=== PATIENT | female | born 1960 | race African-American/Black ===

== ENCOUNTER 2017-11-28 06:47 | Day surgery (SDC) | payer MEDICAID ==
[2017-11-27 10:17] LABS: HEMATOCRIT 40.2 % (36.0-48.0); HEMOGLOBIN 13.7 g/dL (12-16); MCH 34.8 pg (26.0-34.0); MCHC 34.1 g/dL (31.0-37.0); MEAN PLATELET VOLUME 9.2 fL (7.4-10.4); RBC 3.94 10x6/uL (4.00-5.40); RDW 12.6 % (11.5-14.5); WBC 5.5 10x3/uL (4.8-10.8)
[2017-11-27 10:27] LABS: CALC OSMOLALITY 267 mosm/kg (275-300); CALCIUM 8.5 mg/dL (8.5-10.1); CARBON DIOXIDE 26.1 mmol/L (21.0-32.0); CHLORIDE - SERUM 101 mmol/L (98-107); CREATININE - SERUM 0.7 mg/dL (0.6-1.3); GLUCOSE 98 mg/dL (74-106); POTASSIUM - SERUM 3.7 mmol/L (3.5-5.1); SODIUM 136 mmol/L (136-145); UREA NITROGEN 2 mg/dL (7-18); eGFR NON AFRICAN AMERICAN > 90 mL/min (90-120)
[~2017-11-28] VITALS: Ht 320 cm; Wt 92.5 kg
[~2017-11-28 06:47] MED LIST: GLUCOPHAGE500 MG PO; KLOR-CON 1010 MEQ PO; LIPITOR40 MG PO; NEURONTIN 300300 MG; OMEPRAZOLE20 M1 PO; XALATAN 0.0052.5 ML EACH EYE
[2017-11-28] MEDS ORDERED: PRINIVIL20 MG PO (07:02)
[2017-11-28] MEDS ORDERED: NORVASC10 MG PO (07:04)
[2017-11-28 07:07] VITALS: BP 170/109; Ht 320 cm; Wt 92.5 kg
[2017-11-28] MEDS ORDERED: MEPERIDINE HCL50 MG PO (09:33)
== END 2017-11-28 13:55 | disposition home or self-care (01) ==
LOC: D.OPS 06:47 → D.PAN 08:30 → D.OPS 08:30
PROVIDERS: Anesthesiology
DX: K80.20 Calculus of gallbladder without cholecystitis without obstruction (principal); Z01.812 Encounter for preprocedural laboratory examination

== ENCOUNTER 2017-12-02 17:03 | Emergency (ER) | payer MEDICAID ==
[~2017-12-02 17:03] MED LIST changes: +MEPERIDINE HCL50 MG PO; +NORVASC10 MG PO; +PRINIVIL20 MG PO
== END 2017-12-02 19:44 | disposition home or self-care (01) ==
LOC: D.ER 17:03
DX: L03.311 Cellulitis of abdominal wall (principal); K21.9 Gastro-esophageal reflux disease without esophagitis; E11.9 Type 2 diabetes mellitus without complications; I10 Essential (primary) hypertension

== ENCOUNTER → 2018-04-12 22:36 | Outpatient (CLI) | payer MEDICAID | END | disposition home or self-care (01) | LOC: D.MAMMO 14:45 | DX: Z12.31 Encounter for screening mammogram for malignant neoplasm of breast (principal) ==

== ENCOUNTER 2018-06-10 08:00 | Outpatient (CLI) | payer MEDICAID | END 2018-06-10 09:00 | disposition home or self-care (01) | LOC: D.MAMMO 08:00 | DX: R92.8 Other abnormal and inconclusive findings on diagnostic imaging of breast (principal) ==

== ENCOUNTER → 2018-07-03 10:28 | Outpatient (CLI) | payer MEDICAID | END | disposition home or self-care (01) | LOC: D.US 06-25 11:00 | DX: R92.8 Other abnormal and inconclusive findings on diagnostic imaging of breast (principal) ==

== ENCOUNTER → 2018-08-23 08:27 | Outpatient (CLI) | payer MEDICAID | END | disposition home or self-care (01) | LOC: D.CT 08-09 10:30 | DX: C50.212 Malignant neoplasm of upper-inner quadrant of left female breast (principal) ==

== ENCOUNTER 2018-09-16 05:20 | Day surgery (SDC) | payer MEDICAID ==
[2018-09-13 09:42] LABS: BASOPHILS 0.3 % (0-2); EOSINOPHILS 1.8 % (0-7); HEMATOCRIT 35.2 % (36.0-48.0); HEMOGLOBIN 12.5 g/dL (12-16); IMMATURE GRANULOCYTES 0.1 % (0-5); LYMPHOCYTES 22.6 % (15-50); MCHC 35.5 g/dL (31.0-37.0); MCV 95.7 fL (80.0-100.0); MEAN PLATELET VOLUME 8.6 fL (7.4-10.4); MONOCYTES 9.6 % (2-11); NEUTROPHILS 65.6 % (40-80); RBC 3.68 10x6/uL (4.00-5.40); RDW 12.4 % (11.5-14.5); WBC 7.7 10x3/uL (4.8-10.8)
[2018-09-13 09:49] LABS: PLATELET COUNT 197 10x3/uL (130-400)
[2018-09-13 09:53] LABS: CALC OSMOLALITY 251 mosm/kg (275-300); CALCIUM 8.8 mg/dL (8.5-10.1); CARBON DIOXIDE 30.2 mmol/L (21.0-32.0); CHLORIDE - SERUM 88 mmol/L (98-107); CREATININE - SERUM 0.6 mg/dL (0.6-1.3); GLUCOSE 133 mg/dL (74-106); POTASSIUM - SERUM 4.1 mmol/L (3.5-5.1); SODIUM 126 mmol/L (136-145); UREA NITROGEN 3 mg/dL (7-18); eGFR NON AFRICAN AMERICAN > 90 mL/min (90-120)
[2018-09-13 13:01] LABS: APTT 37.2 SECONDS (22.8-39.4)
[2018-09-13 13:16] LABS: INR 1.46 (0.85-1.17); PROTIME 17.2 SECONDS (11.6-15.0)
[~2018-09-16] VITALS: Ht 167.6 cm; Wt 104.8 kg
[2018-09-16] MEDS ORDERED: FEMARA2.5 MG PO (06:18)
[2018-09-16] MEDS ORDERED: FUROSEMIDE40 MG (06:19)
[2018-09-16] MEDS ORDERED: FLAGYL500 MG PO (06:20)
[2018-09-16 06:29] VITALS: BP 129/91; Ht 167.6 cm; Wt 104.8 kg
[2018-09-16] MEDS ORDERED: OXYCODONE HCL5 M1 PO (15:52)
--- NOTE | 2018-09-17 12:32 | OP ---
PATIENT NAME: AURELIANO NELSON MEDICAL RECORD: [id number] :62 LOCATION:D.FORMERLY [facility] [place] ADMISSION DATE: SURGEON: BROOK CHERY MD DATE OF OPERATION: 09/16/2018 SURGEON: Brook Chery MD (JJ) DISINTEGRATOR: Alesia Pritchett APRN PREOPERATIVE DIAGNOSIS: Left breast invasive breast cancer. POSTOPERATIVE DIAGNOSIS: Left breast invasive breast cancer. PROCEDURES PERFORMED: Left breast lumpectomy and sentinel lymph node biopsy with preoperative needle localization and lymphoscintigraphy. ANESTHESIA: General. COMPLICATIONS: None. SPECIMENS: 1. Left breast lumpectomy. 2. Left axillary sentinel lymph node biopsy times 2. Case was clean. OPERATIVE COURSE: After consent was obtained, the patient was taken to the operating room and placed in the supine position on the operating table. Next, general anesthesia was given via endotracheal intubation. Next, time-out was taken to confirm the correct patient and procedure. The left breast and axilla were prepped and draped in typical sterile fashion. Time-out was taken to confirm the correct patient and procedure. Methylene blue was injected in the circumareolar fashion along the left breast. The needle was located in the upper outer quadrant. Local anesthetic was administered in the proposed skin excision site. An elliptical incision was made around the wire with #15 blade scalpel dissection and continued with electrocautery. The wire and skin were grasped with an Allis clamp. Dissection was then continued to the breast tissue using sharp scissor dissection. The wire was followed and the breast tissue specimen was circumferentially dissected and sent for mammographic confirmation. The wire and clip were confirmed on mammographic x-ray. At this time, the wound was copiously irrigated and suctioned. Careful attention was paid to hemostasis, which was obtained with electrocautery. The operative field was marked with clips. Subcutaneous tissue was reapproximated using 3-0 Vicryl in 2 layers, deep layer and superficial layer. Skin was closed with 4-0 Stratafix, Mastisol, and Steri-Strips. Local anesthetic was injected in the left axilla. A skin incision was made with a #15 blade scalpel. Dissection was continued with sharp scissor dissection. The 2 blue lymph nodes were identified. They registered greater than 1000 on the [place] counter. They were circumferentially dissected being lymphatics. During this circumferential dissection, clips were placed circumferentially around the lymph node during the dissection of both lymph nodes. Both lymph nodes were sent for permanent pathology. The axilla was then copiously irrigated and suctioned. Careful attention was paid to hemostasis, which was obtained with electrocautery. The wound was copiously irrigated. The axilla was closed deep with 3-0 Vicryl suture for the deep subcutaneous layer and the superficial subcutaneous layer. The skin was closed OPERATIVE REPORT [id number] AURELIANO NELSON with 4-0 Monocryl, Mastisol, and Steri-Strips. At the end of the case, all needle and instrument counts were correct. No complications occurred. The patient was extubated and transferred to the PACU in stable condition. TRANSINT:[id number] Voice Confirmation ID: [id number] DOCUMENT ID: [id number] BROOK CHERY MD at 1232 CC: [id number] DICTATION DATE: 09/16/18 1606 [facility] EDUCATOR: 09/16/18 1907 [facility] 09/16/18 [facility] [address] [place] [address]
== END 2018-09-16 19:25 | disposition home or self-care (01) ==
LOC: D.OPS 05:20 → D.PAN 08:00 → D.NM 08:00 → D.OPS 19:25
PROVIDERS: Anesthesiology
DX: C50.912 Malignant neoplasm of unspecified site of left female breast (principal)

== ENCOUNTER 2018-09-22 20:31 | Emergency (ER) | payer MEDICAID ==
[~2018-09-22] VITALS: Ht 167.6 cm; Wt 106.8 kg
[~2018-09-22 20:31] MED LIST changes: +FEMARA2.5 MG PO; +FLAGYL500 MG PO; +FUROSEMIDE40 MG; +OXYCODONE HCL5 M1 PO
[2018-09-22 20:56] VITALS: Ht 167.6 cm; Wt 106.8 kg
[2018-09-22 22:25] LABS: BASOPHILS 0.2 % (0-2); EOSINOPHILS 3.8 % (0-7); HEMATOCRIT 28.3 % (36.0-48.0); IMMATURE GRANULOCYTES 0.5 % (0-5); LYMPHOCYTES 22.5 % (15-50); MCH 34.6 pg (26.0-34.0); MCHC 35.3 g/dL (31.0-37.0); MCV 97.9 fL (80.0-100.0); MEAN PLATELET VOLUME 8.3 fL (7.4-10.4); MONOCYTES 8.9 % (2-11); NEUTROPHILS 64.1 % (40-80); PLATELET COUNT 212 10x3/uL (130-400); RBC 2.89 10x6/uL (4.00-5.40); RDW 13.1 % (11.5-14.5); WBC 10.2 10x3/uL (4.8-10.8)
[2018-09-22 22:43] LABS: ALBUMIN 2.8 g/dL (3.4-5.0); ALKALINE PHOSPHATASE 129 U/L (46-116); ALT (SGPT) 32 U/L (10-68); BILIRUBIN - TOTAL 0.61 mg/dL (0.2-1.3); CALC OSMOLALITY 258 mosm/kg (275-300); CALCIUM 8.2 mg/dL (8.5-10.1); CARBON DIOXIDE 29.7 mmol/L (21.0-32.0); CHLORIDE - SERUM 94 mmol/L (98-107); CREATININE - SERUM 0.7 mg/dL (0.6-1.3); GLUCOSE 125 mg/dL (74-106); POTASSIUM - SERUM 3.8 mmol/L (3.5-5.1); PROTEIN - SERUM 6.9 g/dL (6.4-8.2); SODIUM 130 mmol/L (136-145); UREA NITROGEN 5 mg/dL (7-18); eGFR NON AFRICAN AMERICAN > 90 mL/min (90-120)
[2018-09-23 00:50] VITALS: BP 138/90
== END 2018-09-23 00:50 | disposition home or self-care (01) ==
LOC: D.ER 20:31
PROVIDERS: Family Medicine
DX: R22.32 Localized swelling, mass and lump, left upper limb (principal); S40.022A Contusion of left upper arm, initial encounter; X58.XXXA Exposure to other specified factors, initial encounter; Y93.89 Activity, other specified; Y92.89 Other specified places as the place of occurrence of the external cause; Z98.890 Other specified postprocedural states

== ENCOUNTER 2019-02-12 13:25 | Emergency (ER) | payer MEDICAID ==
[~2019-02-12] VITALS: Ht 167.6 cm; Wt 106.8 kg
[2019-02-12 13:27] VITALS: Ht 167.6 cm; Wt 106.8 kg
[2019-02-12] MEDS ORDERED: PRINIVIL20 MG PO (13:34)
[2019-02-12] MEDS ORDERED: COZAAR100 MG PO (13:36)
[2019-02-12 14:21] LABS: KETONE - SERUM NEGATIVE (NEGATIVE)
[2019-02-12 14:26] LABS: ALBUMIN 3.7 g/dL (3.4-5.0); ALKALINE PHOSPHATASE 89 U/L (46-116); ALT (SGPT) 26 U/L (10-68); BILIRUBIN - TOTAL 1.22 mg/dL (0.2-1.3); CALC OSMOLALITY 269 mosm/kg (275-300); CALCIUM 9.2 mg/dL (8.5-10.1); CARBON DIOXIDE 28.1 mmol/L (21.0-32.0); CHLORIDE - SERUM 95 mmol/L (98-107); CREATININE - SERUM 1.8 mg/dL (0.6-1.3); GLUCOSE 99 mg/dL (74-106); POTASSIUM - SERUM 3.1 mmol/L (3.5-5.1); PROTEIN - SERUM 8.3 g/dL (6.4-8.2); SODIUM 135 mmol/L (136-145); UREA NITROGEN 12 mg/dL (7-18); eGFR NON AFRICAN AMERICAN 31 mL/min (90-120)
[2019-02-12 14:30] LABS: AMYLASE - SERUM 32 U/L (25-115); LIPASE 173 U/L (73-393); TROPONIN-I < 0.017 ng/mL (0.000-0.060)
[2019-02-12 14:31] LABS: BASOPHILS 0.1 % (0-2); EOSINOPHILS 0.6 % (0-7); HEMATOCRIT 32.3 % (36.0-48.0); HEMOGLOBIN 11.2 g/dL (12-16); IMMATURE GRANULOCYTES 0.4 % (0-5); LYMPHOCYTES 7.6 % (15-50); MCH 36.1 pg (26.0-34.0); MCHC 34.7 g/dL (31.0-37.0); MCV 104.2 fL (80.0-100.0); MEAN PLATELET VOLUME 9.2 fL (7.4-10.4); MONOCYTES 6.6 % (2-11); NEUTROPHILS 84.7 % (40-80); RDW 14.3 % (11.5-14.5); WBC 8.4 10x3/uL (4.8-10.8)
[2019-02-12 14:33] LABS: PLATELET COUNT 163 10x3/uL (130-400)
[2019-02-12 16:46] LABS: APPEARANCE CLEAR (CLEAR); COLOR YELLOW (YELLOW); SPECIFIC GRAVITY 1.015 (1.005-1.020)
[2019-02-12 16:47] LABS: BILIRUBIN NEGATIVE (NEGATIVE); GLUCOSE NEGATIVE (NEGATIVE); KETONE NEGATIVE (NEGATIVE); NITRITE NEGATIVE (NEGATIVE); PROTEIN NEGATIVE (NEGATIVE); UROBILINOGEN NORMAL (NORMAL)
[2019-02-12] MEDS ORDERED: PHENERGAN25 M1 PO (17:17)
[2019-02-12 17:32] VITALS: BP 117/80
[2019-02-13] MEDS ORDERED: ONDANSETRON8 MG/TAB PO (16:21)
== END 2019-02-12 17:28 | disposition home or self-care (01) ==
LOC: D.ER 13:25
PROVIDERS: Family Medicine
DX: A08.4 Viral intestinal infection, unspecified (principal)

== ENCOUNTER 2019-02-13 13:50 | Emergency (ER) | payer MEDICAID ==
[~2019-02-13] VITALS: Ht 167.6 cm; Wt 106.8 kg
[~2019-02-13 13:50] MED LIST changes: +COZAAR100 MG PO; +PHENERGAN25 M1 PO
[2019-02-13 14:00] VITALS: Ht 167.6 cm; Wt 106.8 kg
[2019-02-13 14:37] LABS: BASOPHILS 0.1 % (0-2); EOSINOPHILS 1.3 % (0-7); HEMATOCRIT 30.3 % (36.0-48.0); HEMOGLOBIN 10.4 g/dL (12-16); IMMATURE GRANULOCYTES 0.1 % (0-5); LYMPHOCYTES 12.1 % (15-50); MCH 35.5 pg (26.0-34.0); MCHC 34.3 g/dL (31.0-37.0); MCV 103.4 fL (80.0-100.0); MEAN PLATELET VOLUME 9.2 fL (7.4-10.4); MONOCYTES 9.9 % (2-11); NEUTROPHILS 76.5 % (40-80); PLATELET COUNT 135 10x3/uL (130-400); RBC 2.93 10x6/uL (4.00-5.40); RDW 14.1 % (11.5-14.5); WBC 6.7 10x3/uL (4.8-10.8)
[2019-02-13 14:57] LABS: ALBUMIN 3.4 g/dL (3.4-5.0); ALKALINE PHOSPHATASE 74 U/L (46-116); ALT (SGPT) 26 U/L (10-68); BILIRUBIN - TOTAL 0.86 mg/dL (0.2-1.3); CALC OSMOLALITY 266 mosm/kg (275-300); CALCIUM 8.4 mg/dL (8.5-10.1); CARBON DIOXIDE 27.1 mmol/L (21.0-32.0); CHLORIDE - SERUM 95 mmol/L (98-107); CREATININE - SERUM 2.2 mg/dL (0.6-1.3); GLUCOSE 122 mg/dL (74-106); PROTEIN - SERUM 7.6 g/dL (6.4-8.2); SODIUM 132 mmol/L (136-145); UREA NITROGEN 14 mg/dL (7-18); eGFR NON AFRICAN AMERICAN 24 mL/min (90-120)
[2019-02-13 15:00] LABS: APTT 27.8 SECONDS (22.8-39.4); INR 1.49 (0.85-1.17); PROTIME 17.4 SECONDS (11.6-15.0)
[2019-02-13 15:15] LABS: CKMB 0.6 U/L (0.0-3.6); CREATINE KINASE 72 UL (21-215); THYROID STIMULATING HORMONE 2.09 uIU/mL (0.36-3.74)
[2019-02-13 15:16] LABS: TROPONIN-I < 0.017 ng/mL (0.000-0.060)
[2019-02-13 15:25] LABS: MAGNESIUM - SERUM 0.9 mg/dL (1.8-2.4)
[2019-02-13 16:04] LABS: APPEARANCE CLEAR (CLEAR); BILIRUBIN NEGATIVE (NEGATIVE); COLOR DK YELLOW (YELLOW); GLUCOSE NEGATIVE (NEGATIVE); KETONE NEGATIVE (NEGATIVE); NITRITE NEGATIVE (NEGATIVE); PROTEIN TRACE mg/dL (NEGATIVE); UROBILINOGEN NORMAL (NORMAL)
[2019-02-13 16:07] LABS: BACTERIA FEW /hpf (NONE SEEN); GRANULAR CAST 0-5 /lpf (NONE SEEN); RED CELLS - URINE 0-5 /hpf (0-5); WHITE CELLS - URINE 0-5 /hpf (0-5)
[2019-02-13 16:09] LABS: UDS - AMPHET NEGATIVE QUAL (NEGATIVE); UDS - BARB NEGATIVE QUAL (NEGATIVE); UDS - BENZO NEGATIVE QUAL (NEGATIVE); UDS - COCAINE NEGATIVE QUAL (NEGATIVE); UDS - OPIATE POSITIVE QUAL (NEGATIVE); UDS - PCP NEGATIVE QUAL (NEGATIVE); UDS - THC NEGATIVE QUAL (NEGATIVE)
[2019-02-13] MEDS ORDERED: ONDANSETRON8 MG/TAB PO (16:21)
--- NOTE | 2019-02-13 17:20 | NUR ---
DR GUERRIER NOTIFIED AND REVIEWED PATIENT'S BEHAVIOR AND ASSESSMENT RESULTS. PT IS A LOW RISK PER DR GUERRIER. DR GUERRIER STATED TO GIVE REWOURCES TO PATIENT AT TIME OF DISCHARGE. NO FURTHER ORDERS AT THIS TIME. RESOURCES REVIEWED WITH PT AND SHE VERBALIZED UNDERSTANDING.
[2019-02-13 18:07] VITALS: BP 119/84
== END 2019-02-13 17:41 | disposition home or self-care (01) ==
LOC: D.ER 13:50
PROVIDERS: Family Medicine
DX: R42 Dizziness and giddiness (principal); E11.9 Type 2 diabetes mellitus without complications; I10 Essential (primary) hypertension; E87.6 Hypokalemia; E87.1 Hypo-osmolality and hyponatremia; R11.2 Nausea with vomiting, unspecified; N28.9 Disorder of kidney and ureter, unspecified

== ENCOUNTER → 2019-05-12 11:04 | Outpatient (CLI) | payer MEDICAID ==
[2019-02-13 14:00] VITALS: BMI 38.0
[~2019-05-12 11:04] MED LIST changes: +ONDANSETRON8 MG/TAB PO; +ULTRAM50 MG PO
== END | disposition home or self-care (01) ==
LOC: D.MAMMO 10:00 → D.US 11:04 → D.MAMMO 06-11 09:30
PROVIDERS: ATTEND Internal Medicine Medical Oncology
DX: C50.212 Malignant neoplasm of upper-inner quadrant of left female breast (principal)

== ENCOUNTER 2019-06-04 09:24 | Inpatient (IN) | payer MEDICAID ==
[~2019-06-04] VITALS: Ht 167.6 cm; Wt 107.5 kg
[~2019-06-04 09:24] MED LIST changes: -ULTRAM50 MG PO
[2019-06-04 10:21] LABS: APTT 34.6 SECONDS (22.8-39.4); INR 1.36 (0.85-1.17); PROTIME 16.2 SECONDS (11.6-15.0)
[2019-06-04 10:27] LABS: CALC OSMOLALITY 247 mosm/kg (275-300); CALCIUM 8.6 mg/dL (8.5-10.1); CARBON DIOXIDE 27.1 mmol/L (21.0-32.0); CHLORIDE - SERUM 86 mmol/L (98-107); GLUCOSE 127 mg/dL (74-106); POTASSIUM - SERUM 4.3 mmol/L (3.5-5.1); SODIUM 123 mmol/L (136-145); UREA NITROGEN 7 mg/dL (7-18); eGFR NON AFRICAN AMERICAN 61 mL/min (90-120)
[2019-06-04 10:44] LABS: ALBUMIN 2.9 g/dL (3.4-5.0); ALKALINE PHOSPHATASE 122 U/L (46-116); ALT (SGPT) 24 U/L (10-68); AMYLASE - SERUM 51 U/L (25-115); BILIRUBIN - TOTAL 0.52 mg/dL (0.2-1.3); CKMB 1.2 U/L (0.0-3.6); CREATINE KINASE 102 UL (21-215); LIPASE 226 U/L (73-393); MAGNESIUM - SERUM 1.1 mg/dL (1.8-2.4); PROTEIN - SERUM 7.1 g/dL (6.4-8.2); TROPONIN-I < 0.017 ng/mL (0.000-0.060)
[2019-06-04 10:53] LABS: BASOPHILS 0.1 % (0-2); EOSINOPHILS 0.9 % (0-7); HEMATOCRIT 31.1 % (36.0-48.0); IMMATURE GRANULOCYTES 0.3 % (0-5); LYMPHOCYTES 6.8 % (15-50); MCH 35.9 pg (26.0-34.0); MCHC 35.4 g/dL (31.0-37.0); MCV 101.6 fL (80.0-100.0); MEAN PLATELET VOLUME 8.9 fL (7.4-10.4); MONOCYTES 6.8 % (2-11); NEUTROPHILS 85.1 % (40-80); RBC 3.06 10x6/uL (4.00-5.40); RDW 12.8 % (11.5-14.5)
[2019-06-04 10:57] LABS: PLATELET COUNT 212 10x3/uL (130-400)
--- NOTE | 2019-06-04 11:46 | NUR ---
REPORT TO PAULINA GARNER. pATIENT TO GO TO ROOM 6309
--- NOTE | 2019-06-04 12:07 | NUR ---
RECEIVED FROM ER VIA W/C. SHE IS ABLE TO TRANSFER SELF TO THE BED. RESP EVEN WITHOUT LABOR. ALERT AND ORIENT X4. COOPERATIVE. IV BANANA BAG INFUSING IN RIGHT A/C SITE IS CLEAR. ORIENT TO ROOM AND USE OF CL. BED IN LOWEST POSITION AND LOCKED. CAREPLAN INITIATED. ABLE TO MOVE ALL EXT. FOLLOWS COMMANDS. TELEMENTRY ON. DENIES ANY CURRENT NEEDS. HER LEFT BREAST IS SWOLLEN AND EDEMATOUS, PAINFUL TO TOUCH. SHE STATES IT HAS BEEN THAT WAY SINCE LUMPECTOMY. FLAQUITO GOETZ IS HERE AND AWARE. IS AT BEDSIDE
[2019-06-04 15:44] VITALS: BP 137/81; BMI 24.4
[2019-06-04] MEDS ORDERED: ULTRAM50 MG PO (19:03)
--- NOTE | 2019-06-04 19:30 | NUR ---
PT SITTING UP IN BED ALERT AND ORIENTED X4. FAMILY AT BEDSIDE. PT DENIES ANY PAIN OR NEEDS AT THIS TIME. BED LOW CALL LIGHT WITHIN REACH. WILL CONTINUE TO MONITOR.
[2019-06-04 20:00] VITALS: BP 150/91
[2019-06-05] VITALS: BP 138/69
[2019-06-05 04:00] VITALS: BP 112/77
[2019-06-05 04:25] LABS: BASOPHILS 0.1 % (0-2); EOSINOPHILS 0.4 % (0-7); HEMATOCRIT 29.9 % (36.0-48.0); HEMOGLOBIN 10.3 g/dL (12-16); IMMATURE GRANULOCYTES 0.3 % (0-5); LYMPHOCYTES 7.5 % (15-50); MCH 35.5 pg (26.0-34.0); MCHC 34.4 g/dL (31.0-37.0); MCV 103.1 fL (80.0-100.0); MEAN PLATELET VOLUME 8.6 fL (7.4-10.4); MONOCYTES 8.4 % (2-11); NEUTROPHILS 83.3 % (40-80); PLATELET COUNT 197 10x3/uL (130-400); RDW 12.7 % (11.5-14.5)
[2019-06-05 04:45] LABS: ALBUMIN 2.8 g/dL (3.4-5.0); ANION GAP 8.7 mmol/L (8-16); BILIRUBIN - TOTAL 0.78 mg/dL (0.2-1.3); CALCIUM 8.4 mg/dL (8.5-10.1); CARBON DIOXIDE 31.1 mmol/L (21.0-32.0); CREATININE - SERUM 1.1 mg/dL (0.6-1.3); POTASSIUM - SERUM 3.8 mmol/L (3.5-5.1); PROTEIN - SERUM 6.8 g/dL (6.4-8.2)
[2019-06-05 05:11] LABS: MAGNESIUM - SERUM 1.4 mg/dL (1.8-2.4)
--- NOTE | 2019-06-05 07:58 | NUR ---
REPORT RECEIVED. WILL CONTINUE WITH POC. PT CURRENTLY LYING HIGH FOWLERS. CALL LIGHT W/I REACH. RR EVEN AND UNLABORED ON RA. NS INFUSING @100ML/HR VIA R.FOR PIV. NO S/S OF DISTRESS NOTED. PT DENIES ANY NEEDS AT THIS TIME. WILL CTM.
[2019-06-05 09:18] VITALS: BP 119/74
[2019-06-05 11:02] LABS: % SATURATION 41 % (15-55); IRON 94 ug/dl (35-150); TOTAL IRON BIND CAPACITY 229 ug/dl (260-445); UNSAT IRON BIND CAPACITY 135 ug/dl (150-375)
[2019-06-05 11:58] VITALS: Ht 167.6 cm; Wt 107.5 kg
--- NOTE | 2019-06-05 13:47 | NUR ---
PT DISCHARGED HOME VIA WHEELCHAIR WITH FAMILY. PIV REMOVED WITH CATHETER TIP FULLY INTACT. TELEMETRY REMOVED AND RETURNED. PT SIGNED PROPER DISCHARGE INSTRUCTIONS AND REMOVED ALL VALUABLES FROM THE ROOM.
--- NOTE | 2019-06-05 14:32 | MORECARE ---
CASE MANAGEMENT DISCHARGE SUMMARY PATIENT: AURELIANO NELSON UNIT: [id number] ADM DATE: 06/04/19 AGE: 58 : 62 SEX: F ROOM/BED: D.2108 AUTHOR: MARGARETH HSIEH PHYSICIAN: REFERRING PHYSICIAN: BUBBA RIVERA MD DATE OF SERVICE: 06/05/19 Discharge Plan Patient Name: AURELIANO NELSON Facility: [facility]:[place] : 1960 Planned Disposition: Home Anticipated Discharge Date: 06/05/19 Discharge Date: 06/05/2019 Expected LOS: 1 Initial Reviewer: [email or web address] Initial Review Date: 06/05/2019 Generated: 06/05/19 3:31 pm Patient Name: AURELIANO NELSON Page [id number] at 1432 All edits/amendments must be made on the electronic document DICTATION DATE: 06/05/19 1431 COMMUNICATIONS COORDINATOR: ADILENE 06/05/19 1431 RPT#: [id number] DC DATE:06/05/19 STATUS: DIS IN [facility] [address] [place] [address] END OF REPORT
--- NOTE | 2019-06-05 14:42 | MORECARE ---
CASE MANAGEMENT DISCHARGE SUMMARY PATIENT: AURELIANO NELSON UNIT: [id number] ADM DATE: 06/04/19 AGE: 58 : 62 SEX: F ROOM/BED: D.5351 AUTHOR: JORI,DOC PHYSICIAN: REFERRING PHYSICIAN: BUBBA RIVERA MD DATE OF SERVICE: 06/05/19 Discharge Plan Patient Name: AURELIANO NELSON Facility: [facility]:[place] : 1960 Planned Disposition: Home Anticipated Discharge Date: 06/05/19 Discharge Date: 06/05/2019 Expected LOS: 1 Initial Reviewer: GERRI Initial Review Date: 06/05/2019 Generated: 06/05/19 3:41 pm Comments DCP- Discharge Planning Updated by [email or web address]: Farshad Cook on 06/05/19 1:[address] Patient Name: AURELIANO NELSON Admission Status: ER Accout number: [id number] Admission Date: 06-04-2019 : 1960 Admission Diagnosis: Attending: NICOLE, Current LOS: 1 Anticipated DC Date: 06-05-2019 Planned Disposition: Home Primary Insurance: MEDICAID [place] Discharge Planning Comments: CM RECEIVED DISCHARGE ORDER INDICATING PT NEEDS Alcoholics Anonymous INFORMATION. CM MET WITH PT IN ROOM TO DISCUSS DISCHARGE PLANNING AND NEEDS. PT REPORTS LIVING AT HOME INDEPENDENTLY WITH HER "OLD MAN" OF OVER 30 YEARS. PT HAS NO MEDICAL EQUIPMENT AND NO OUTSIDE SERVICES ASSISTING IN THE HOME. CM DISCUSSED AVAILABILITY OF HOME HEALTH, REHAB SERVICES AND MEDICAL EQUIPMENT. PT DENIES DISCHARGE NEEDS, REPORTS SHE IS DRIVING SELF HOME AT DISCHARGE TODAY. CM DISCUSSED LOCAL TREATMENT AND ADDICTION SUPPORT RESOURCES AVALABLE IN [place]. CM OFFERED PT LISTING, PT ACCEPTED. PT DENIES NEED OF ASSISTANCE TO QUIT DRINKING. PT STATES SHE HAD BEEN DRINKING "PRETTY MUCH" HER WHOLE LIFE. PT USUALLY DRINKS HALF A PINT OF GIN WITH SPRITE DURING A DAY. PT HAS BEEN DRINKING A LITTLE MORE OF IT LATELY DUE TO FAMILY DEATHS. PT PLANS TO STOP DRINKING HERSELF AND DENIES NEED OF TREATMENT AND SUPPORT RESOURCES. MECHANICAL ENGINEERING TEACHER NURSE NOTIFIED. [place]ting Head Band Sawyer: Farshad Cook DCPIA - Discharge Planning Initial Assessment Updated by [email or web address]: Farshad Cook on 06/05/19 2:35 pm * Is the patient Alert and Oriented? Yes * How many steps to enter\\exit or inside your home? * PCP DR DE LA CRUZ * Pharmacy [facility] * Preadmission Environment Home with Family * ADLs Independent * Equipment None * Other Equipment NO MEDICAL EQUIPMENT PROVIDER PREFERENCE * List name and contact numbers for known caregivers / representatives who currently or will assist patient after discharge: WILMER CERNA, SIGNIFICANT OTHER, * Verbal permission to speak to the caregivers and representatives has been obtained from the patient. N/A * Community resources currently utilized None * Please name any agencies selected above. NONE * Additional services required to return to the preadmission environment? No * Can the patient safely return to the preadmission environment? Yes * Has this patient been hospitalized within the prior 30 days at any hospital? No Last DP export: 06/05/19 1:32 Patient Name: AURELIANO NELSON Page [id number] at 1442 All edits/amendments must be made on the electronic document DICTATION DATE: 06/05/19 1441 SOFTWARE DESIGN ANALYST: ADILENE 06/05/19 1441 RPT#: [id number] DC DATE:06/05/19 STATUS: DIS IN [facility] [address] [place] [address] END OF REPORT
== END 2019-06-05 13:48 | disposition home or self-care (01) | DRG 641 ==
LOC: D.ER 09:24 → D.M2 11:34
PROVIDERS: Family Medicine; ADMIT Family Medicine; ATTEND Family Medicine
DX: E87.1 Hypo-osmolality and hyponatremia (principal); F10.20 Alcohol dependence, uncomplicated; Y90.1 Blood alcohol level of 20-39 mg/100 ml; E11.65 Type 2 diabetes mellitus with hyperglycemia; I10 Essential (primary) hypertension; K21.9 Gastro-esophageal reflux disease without esophagitis; N64.4 Mastodynia; D53.9 Nutritional anemia, unspecified

== ENCOUNTER 2019-07-14 09:52 | Emergency (ER) | payer MEDICAID ==
[~2019-07-14] VITALS: Ht 167.6 cm; Wt 104.3 kg
[~2019-07-14 09:52] MED LIST changes: +ULTRAM50 MG PO
[2019-07-14 09:56] VITALS: Ht 167.6 cm; Wt 104.3 kg
[2019-07-14 11:12] VITALS: BP 136/74
== END 2019-07-14 11:13 | disposition home or self-care (01) ==
LOC: D.ER 09:52
DX: N64.4 Mastodynia (principal); Z85.3 Personal history of malignant neoplasm of breast; E11.9 Type 2 diabetes mellitus without complications; Z79.84 Long term (current) use of oral hypoglycemic drugs; I10 Essential (primary) hypertension

== ENCOUNTER → 2019-09-01 12:36 | Outpatient (CLI) | payer MEDICAID ==
[2019-07-14 09:56] VITALS: BMI 38.2
== END | disposition home or self-care (01) ==
LOC: D.US 12:36
PROVIDERS: ATTEND Surgery
DX: C50.919 Malignant neoplasm of unspecified site of unspecified female breast (principal)

== ENCOUNTER 2019-10-14 13:50 | Inpatient (IN) | payer MEDICAID ==
[~2019-10-14] VITALS: Ht 167.6 cm; Wt 106.8 kg
[2019-10-14] MEDS ORDERED: PHENERGAN25 M1 PO (13:58)
[2019-10-14] MEDS ORDERED: REGLAN5 MG PO (13:59)
[2019-10-14 14:26] LABS: BASOPHILS 0.2 % (0-2); EOSINOPHILS 4.4 % (0-7); HEMATOCRIT 32.4 % (36.0-48.0); HEMOGLOBIN 10.7 g/dL (12-16); IMMATURE GRANULOCYTES 0.1 % (0-5); LYMPHOCYTES 17.2 % (15-50); MCH 28.9 pg (26.0-34.0); MCV 87.6 fL (80.0-100.0); MEAN PLATELET VOLUME 8.8 fL (7.4-10.4); NEUTROPHILS 71.1 % (40-80); RDW 12.8 % (11.5-14.5); WBC 8.8 10x3/uL (4.8-10.8)
[2019-10-14 14:43] LABS: PLATELET COUNT 292 10x3/uL (130-400)
--- NOTE | 2019-10-14 14:55 | NUR ---
URINE SPECIMEN COLLECTED, LABELED AT BS AND SENT TO LAB
[2019-10-14 14:57] VITALS: BP 140/78
[2019-10-14 15:48] LABS: BILIRUBIN NEGATIVE (NEGATIVE); GLUCOSE NEGATIVE (NEGATIVE); KETONE NEGATIVE (NEGATIVE); NITRITE NEGATIVE (NEGATIVE); UROBILINOGEN NORMAL (NORMAL)
[2019-10-14 15:49] LABS: BACTERIA MODERATE /hpf (NEGATIVE); EPITHELIAL CELLS 0-5 /hpf (0-5); RED CELLS - URINE 0-5 /hpf (0-5); WHITE CELLS - URINE 0-5 /hpf (NEGATIVE)
[2019-10-14 15:50] LABS: ANION GAP 12.9 mmol/L (8-16); CALCIUM 9.6 mg/dL (8.5-10.1); CARBON DIOXIDE 25.9 mmol/L (21.0-32.0); CREATININE - SERUM 1.2 mg/dL (0.6-1.3); POTASSIUM - SERUM 3.8 mmol/L (3.5-5.1)
[2019-10-14 15:56] LABS: ALBUMIN 3.2 g/dL (3.4-5.0); BILIRUBIN - TOTAL 0.28 mg/dL (0.2-1.3); PROTEIN - SERUM 7.7 g/dL (6.4-8.2)
--- NOTE | 2019-10-14 16:30 | NUR ---
ROCEPHIN 1 GRAM COMPLETED ON 10/14/19 AT 16:30.
--- NOTE | 2019-10-14 16:41 | NUR ---
REPORT CALLED TO PAULINA GAMING ROOM ISNT READY AT THIS TIME BUT RN STATED SHE CALL WHEN ROOM IS READY.
--- NOTE | 2019-10-14 17:00 | NUR ---
500 MG ZITHROMYCIN COMPLETED ON 10/14/19 AT 17:00
--- NOTE | 2019-10-14 17:00 | NUR ---
TRANSPORTED TO FLOOR , CONDITION STABLE
[2019-10-14] MEDS ORDERED: TEMAZEPAM30 MG PO (17:11)
[2019-10-14 17:22] VITALS: Ht 167.6 cm; Wt 106.8 kg
[2019-10-14 17:25] VITALS: BP 89/48
--- NOTE | 2019-10-14 19:00 | NUR ---
BEDSIDE REPORT RECEIVED AND CARE OF PT ASSUMED. PT LYING IN SUPINE POSITION WITH EYES CLOSED. IV TO LEFT FA SALINE LOCKED. WILL MONITOR FOR NEEDS.
[2019-10-14 21:28] VITALS: BP 119/71
--- NOTE | 2019-10-14 22:21 | NUR ---
HS MEDICATIONS GIVEN. FSBS 162 THIS CHECK REQUIRING COVERAGE WITH 2 UNITS OF INSULIN PER SLIDING SCALE.
[2019-10-15 01:59] VITALS: BP 118/79
[2019-10-15 04:36] LABS: BASOPHILS 0.1 % (0-2); EOSINOPHILS 2.8 % (0-7); HEMATOCRIT 30.3 % (36.0-48.0); IMMATURE GRANULOCYTES 0.1 % (0-5); LYMPHOCYTES 18.4 % (15-50); MCH 28.8 pg (26.0-34.0); MCV 87.3 fL (80.0-100.0); NEUTROPHILS 74.6 % (40-80); PLATELET COUNT 288 10x3/uL (130-400); RBC 3.47 10x6/uL (4.00-5.40); RDW 12.8 % (11.5-14.5)
[2019-10-15 05:01] LABS: ALBUMIN 2.8 g/dL (3.4-5.0); ANION GAP 11.2 mmol/L (8-16); BILIRUBIN - TOTAL 0.28 mg/dL (0.2-1.3); CALCIUM 9.3 mg/dL (8.5-10.1); CARBON DIOXIDE 27.6 mmol/L (21.0-32.0); CHOL - HDL RATIO 3.7 ratio (2.3-4.1); LDL-HDL RATIO 2.2 ratio (1.5-3.5); PHOSPHOROUS 3.9 mg/dL (2.5-4.9); POTASSIUM - SERUM 3.8 mmol/L (3.5-5.1)
[2019-10-15 06:04] VITALS: BP 129/83
[2019-10-15 08:00] VITALS: BP 126/81
--- NOTE | 2019-10-15 08:02 | NUR ---
PT RESTING QUIETLY IN BED, RESP EVEN AND UNLABORED. DENIES PAIN AT THIS TIME. SALINE LOC TO LEFT FOREARM INTACT, EASILY FLUSHED. SITE WITHOUT REDNESS OR EDEMA. DENIES FURTHER NEEDS AT THIS TIME. CL WITHIN REACH. ENCOURAGED TO CALL WITH NEEDS. CONTINUE POC
[2019-10-15] MEDS ORDERED: ZITHROMAX250 MG PO (09:22)
[2019-10-15] MEDS ORDERED: OMNICEF300 MG PO (09:22)
[2019-10-15] MEDS ORDERED: FLORAJEN3 CAPS460 MG PO (09:23)
[2019-10-15] MEDS ORDERED: LIPITOR10 MG PO (09:26)
--- NOTE | 2019-10-15 10:50 | NUR ---
PT DISCHARGE EDUCATION PROVIDED. STRESSED THE IMPORTANCE OF NEWLY PRESCRIBED MEDICATIONS, INCLUDING ANTIBIOTICS. AND CONTINUATION OF HOME MEDICATIONS. PT VOICES UNDERSTANDING AND WITHOUT FURTHER QUESTIONS. SALINE LOC DISCONTINUED FROM LEFT FOREARM, CATH INTACT. PT TAKEN OUT VIA W/C WITH ALL PERSONAL POSSESIONS
== END 2019-10-15 11:24 | disposition home or self-care (01) | DRG 194 ==
LOC: D.ER 13:50 → D.MS 15:30
PROVIDERS: Family Medicine; ADMIT Family Medicine; ATTEND Family Medicine
DX: J18.9 Pneumonia, unspecified organism (principal); E87.1 Hypo-osmolality and hyponatremia; I10 Essential (primary) hypertension; E11.42 Type 2 diabetes mellitus with diabetic polyneuropathy; H40.9 Unspecified glaucoma; K21.9 Gastro-esophageal reflux disease without esophagitis; C50.912 Malignant neoplasm of unspecified site of left female breast

== ENCOUNTER 2019-10-23 12:22 | Emergency (ER) | payer MEDICAID ==
[~2019-10-23] VITALS: Ht 167.6 cm; Wt 102.3 kg
[~2019-10-23 12:22] MED LIST changes: +FLORAJEN3 CAPS460 MG PO; +LIPITOR10 MG PO; +OMNICEF300 MG PO; +REGLAN5 MG PO; +TEMAZEPAM30 MG PO; +ZITHROMAX250 MG PO
[2019-10-23 12:27] VITALS: Ht 167.6 cm; Wt 102.3 kg
[2019-10-23 15:00] LABS: BASOPHILS 0.1 % (0-2); EOSINOPHILS 2.3 % (0-7); HEMATOCRIT 34.1 % (36.0-48.0); IMMATURE GRANULOCYTES 0.3 % (0-5); LYMPHOCYTES 18.2 % (15-50); MCHC 32.3 g/dL (31.0-37.0); MEAN PLATELET VOLUME 8.9 fL (7.4-10.4); MONOCYTES 6.9 % (2-11); NEUTROPHILS 72.2 % (40-80); PLATELET COUNT 311 10x3/uL (130-400); RBC 3.79 10x6/uL (4.00-5.40); RDW 12.8 % (11.5-14.5); WBC 10.6 10x3/uL (4.8-10.8)
[2019-10-23 15:15] LABS: ANION GAP 12.3 mmol/L (8-16); CALCIUM 9.6 mg/dL (8.5-10.1); CARBON DIOXIDE 29.6 mmol/L (21.0-32.0); POTASSIUM - SERUM 3.9 mmol/L (3.5-5.1)
[2019-10-23 15:20] LABS: ALBUMIN 3.1 g/dL (3.4-5.0); BILIRUBIN - TOTAL 0.38 mg/dL (0.2-1.3); PROTEIN - SERUM 7.6 g/dL (6.4-8.2); URIC ACID 7.4 mg/dL (2.6-7.2)
[2019-10-23] MEDS ORDERED: PREDNISONE20 MG PO (16:56)
[2019-10-23 17:25] VITALS: BP 159/86
== END 2019-10-23 17:19 | disposition home or self-care (01) ==
LOC: D.ER 12:22
PROVIDERS: Family Medicine
DX: M25.561 Pain in right knee (principal); M10.9 Gout, unspecified; E11.9 Type 2 diabetes mellitus without complications; Z79.84 Long term (current) use of oral hypoglycemic drugs; I10 Essential (primary) hypertension; K21.9 Gastro-esophageal reflux disease without esophagitis

== ENCOUNTER 2020-01-24 02:42 | Emergency (ER) | payer MEDICAID ==
[~2020-01-24] VITALS: Ht 167.6 cm; Wt 108.6 kg
[~2020-01-24 02:42] MED LIST changes: +PREDNISONE20 MG PO
[2020-01-24 02:46] VITALS: Ht 167.6 cm; Wt 108.6 kg
[2020-01-24] MEDS ORDERED: FUROSEMIDE20 MG PO (02:58)
[2020-01-24 03:14] LABS: BASOPHILS 0.1 % (0-2); EOSINOPHILS 1.1 % (0-7); HEMATOCRIT 36.2 % (36.0-48.0); HEMOGLOBIN 11.8 g/dL (12-16); IMMATURE GRANULOCYTES 0.1 % (0-5); LYMPHOCYTES 15.9 % (15-50); MCH 29.5 pg (26.0-34.0); MCHC 32.6 g/dL (31.0-37.0); MCV 90.5 fL (80.0-100.0); MEAN PLATELET VOLUME 9.2 fL (7.4-10.4); MONOCYTES 8.4 % (2-11); NEUTROPHILS 74.4 % (40-80); PLATELET COUNT 219 10x3/uL (130-400); RDW 14.3 % (11.5-14.5); WBC 7.1 10x3/uL (4.8-10.8)
[2020-01-24 03:18] LABS: CALC OSMOLALITY 269 mosm/kg (275-300); CALCIUM 9.3 mg/dL (8.5-10.1); CARBON DIOXIDE 29.4 mmol/L (21.0-32.0); CHLORIDE - SERUM 98 mmol/L (98-107); GLUCOSE 137 mg/dL (74-106); SODIUM 134 mmol/L (136-145); UREA NITROGEN 13 mg/dL (7-18); eGFR NON AFRICAN AMERICAN 60 mL/min (90-120)
[2020-01-24 03:19] LABS: APTT 35.6 SECONDS (22.8-39.4); INR 1.28 (0.85-1.17); PROTIME 15.9 SECONDS (11.6-15.0)
[2020-01-24 03:20] LABS: D-DIMER-QUANTITATIVE 0.79 ug/mLFEU (0.20-0.54)
[2020-01-24 03:31] LABS: ALBUMIN 3.3 g/dL (3.4-5.0); ALKALINE PHOSPHATASE 167 U/L (30-120); ALT (SGPT) 15 U/L (10-68); BILIRUBIN - TOTAL 0.16 mg/dL (0.2-1.3); PRO BNP 77 pg/mL (0-125); PROTEIN - SERUM 7.6 g/dL (6.4-8.2); TROPONIN-I < 0.017 ng/mL (0.000-0.060)
[2020-01-24] MEDS ORDERED: ROBITUSSIN DM 110 ML PO (04:56)
[2020-01-24] MEDS ORDERED: ZITHROMAX500 MG PO (04:56)
[2020-01-24 05:02] VITALS: BP 145/87
== END 2020-01-24 05:02 | disposition home or self-care (01) ==
LOC: D.ER 02:42
PROVIDERS: Family Medicine
DX: J20.9 Acute bronchitis, unspecified (principal); E11.40 Type 2 diabetes mellitus with diabetic neuropathy, unspecified; I10 Essential (primary) hypertension; K21.9 Gastro-esophageal reflux disease without esophagitis; Z79.84 Long term (current) use of oral hypoglycemic drugs; R05 Cough; R06.02 Shortness of breath; R68.89 Other general symptoms and signs

== ENCOUNTER 2020-03-26 18:23 | Outpatient (CLI) | payer MEDICAID ==
[2020-01-24 02:46] VITALS: BMI 38.6
[~2020-03-26 18:23] MED LIST changes: +FUROSEMIDE20 MG PO; +ROBITUSSIN DM 110 ML PO; +ZITHROMAX500 MG PO
== END 2020-03-26 23:59 | disposition home or self-care (01) ==
LOC: D.MAMMO 18:23
PROVIDERS: ATTEND Family Medicine
DX: N64.4 Mastodynia (principal); Z80.3 Family history of malignant neoplasm of breast